=== PATIENT | female | born 1950 | race African-American/Black ===

== ENCOUNTER 2016-04-08 10:02 | Outpatient (CLI) | payer OTHER ==
[2015-06-30 23:35] VITALS: BP 156/84
[2016-04-08 10:52] LABS: BASOPHILS % 0.2 (0.0-1.5); EOSINOPHILS % 1.5 % (0.0-6.8); LYMPHOCYTES # 1.4 # k/uL (0.6-4.0); MEAN CORPUSCULAR HEMOGLOBIN 31.9 pg (28.0-34.0); MONOCYTES # 0.4 # k/uL (0.0-0.9); MONOCYTES % 5.7 % (0.0-11.0); NEUTROPHILS # 5.3 # k/uL (1.4-7.7)
[2016-04-08 11:36] LABS: eGFR (African) 16; eGFR (Non-African) 13
== END 2016-04-08 10:03 ==
LOC: LAB 10:02
PROVIDERS: ATTEND Physician Assistant
DX: R42 Dizziness and giddiness (principal)
CPT/HCPCS: 36415; 80053; 85025

== ENCOUNTER 2016-04-09 09:00 | Outpatient (CLI) | payer OTHER ==
[2015-06-30 23:35] VITALS: BP 156/84
[2016-04-09 09:32] LABS: eGFR (African) 19; eGFR (Non-African) 15
== END 2016-04-09 09:02 ==
LOC: LAB 09:00
PROVIDERS: ATTEND Physician Assistant
DX: E87.5 Hyperkalemia (principal)
CPT/HCPCS: 36415; 80053

== ENCOUNTER 2016-04-11 09:17 | Outpatient (CLI) | payer OTHER ==
[2015-06-30 23:35] VITALS: BP 156/84
[2016-04-11 10:14] LABS: eGFR (African) 20; eGFR (Non-African) 17
== END 2016-04-11 09:20 ==
LOC: LAB 09:17
PROVIDERS: ATTEND Family Medicine
DX: E87.5 Hyperkalemia (principal)
CPT/HCPCS: 36415; 80048

== ENCOUNTER 2016-04-13 12:31 | Outpatient (CLI) | payer OTHER ==
[2015-06-30 23:35] VITALS: BP 156/84
[2016-04-13 13:31] LABS: eGFR (African) 24; eGFR (Non-African) 20
== END 2016-04-13 12:32 ==
LOC: LAB 12:31
PROVIDERS: ATTEND Family Medicine
DX: E87.5 Hyperkalemia (principal)
CPT/HCPCS: 36415; 80048

== ENCOUNTER 2016-04-22 15:52 | Outpatient (CLI) | payer OTHER ==
[2015-06-30 23:35] VITALS: BP 156/84
[2016-04-22 16:46] LABS: eGFR (African) 32; eGFR (Non-African) 26
== END 2016-04-22 15:53 ==
LOC: LAB 15:52
PROVIDERS: ATTEND Physician Assistant
DX: E87.5 Hyperkalemia (principal)
CPT/HCPCS: 36415; 80048

== ENCOUNTER 2016-11-03 16:38 | Outpatient (CLI) | payer OTHER ==
[2015-06-30 23:35] VITALS: BP 156/84
== END 2016-11-03 16:40 ==
LOC: LAB 16:38
PROVIDERS: ATTEND Family Medicine
DX: E11.9 Type 2 diabetes mellitus without complications (principal)
CPT/HCPCS: 36415; 82104; 83036

== ENCOUNTER 2017-06-30 10:15 | Outpatient (CLI) | payer MEDICARE ==
[2015-06-30 23:35] VITALS: BP 156/84
[2017-06-30 10:58] LABS: APPEARANCE,URINE CLEAR (CLEAR); COLOR,URINE YELLOW (YELLOW); OCCULT BLOOD,URINE NEGATIVE (NEGATIVE); UROBILINOGEN URINE 0.2 Eu (0.2-1.0)
[2017-06-30 11:15] LABS: eGFR (African) 17; eGFR (Non-African) 14
--- NOTE | 2017-06-30 18:06 | Diagnostic Imaging Report ---
JOE LAZARO [facility] [place] [id number] [facility].[address] [id number] Report Submission Date: June 30, 2017 1:05:46 PM CDT Patient Study Name: MARLEE SANTOS Date: June 30, 2017 10:44:34 AM CDT Modality Type: DX Gender: F Description: SPINE : 48 Institution: [facility] [place] Physician: JOE LAZARO 3-view thoracic spine Clinical history: T-SPINE, ACUTE MID BACK PAIN AFTER FALL 3 WEEKS AGO,HX OF COPD , CHF Findings: Examination of the thoracic spine in AP, lateral and lateral swimmer' s views demonstrates the vertebrae to be anatomically aligned. Anterior and lateral osteophytes are present throughout the thoracic vertebrae. The pedicles are intact and the paravertebral soft tissues are within normal limits. There is no evident fracture. Impression: 1. Spondylosis. 2. No fracture. Electronically signed on June 30, 2017 1:05:46 PM CDT by: Jean-Paul LUKE
== END 2017-06-30 10:16 ==
LOC: LAB 10:15
PROVIDERS: ATTEND Family Medicine
DX: N18.3 Chronic kidney disease, stage 3 (moderate) (principal); R10.9 Unspecified abdominal pain; R30.0 Dysuria; M54.6 Pain in thoracic spine
CPT/HCPCS: 36415; 72072; 80053; 81002

== ENCOUNTER 2017-09-01 15:29 | Outpatient (CLI) | payer MEDICARE ==
[2015-06-30 23:35] VITALS: BP 156/84
[2017-09-01 17:06] LABS: eGFR (African) 8; eGFR (Non-African) 7
[2017-09-01 17:33] LABS: MEAN CORPUSCULAR VOLUME 105.5 fl (80.0-100.0)
[2017-09-01 17:34] LABS: BASOPHILS % 0.4 (0.0-1.5); EOSINOPHILS % 3.1 % (0.0-6.8); MONOCYTES % 4.5 % (0.0-11.0)
[2017-09-01 17:35] LABS: NEUTROPHILS # 4.4 # k/uL (1.4-7.7)
[2017-09-01 17:46] LABS: MEAN CORPUSCULAR HEMOGLOBIN 32.6 pg (28.0-34.0)
[2017-09-04 16:12] LABS: ANTI-PR3 (C-ANCA) <4.0 EU/mL (<4.0)
== END 2017-09-01 15:34 ==
LOC: LAB 15:29
PROVIDERS: ATTEND Internal Medicine Cardiovascular Disease
DX: N28.9 Disorder of kidney and ureter, unspecified (principal); I10 Essential (primary) hypertension; E11.9 Type 2 diabetes mellitus without complications; E78.5 Hyperlipidemia, unspecified; I25.10 Atherosclerotic heart disease of native coronary artery without angina pectoris
CPT/HCPCS: 36415; 80048; 80069; 83036; 83516; 84155; 84165; 84550; 85025; 86038; 86225

== ENCOUNTER 2017-09-22 14:27 | Outpatient (CLI) | payer MEDICARE ==
[2015-06-30 23:35] VITALS: BP 156/84
[2017-09-22 14:52] LABS: MEAN CORPUSCULAR HEMOGLOBIN 31.9 pg (28.0-34.0); MEAN CORPUSCULAR VOLUME 106.1 fl (80.0-100.0)
== END 2017-09-22 14:30 ==
LOC: LAB 14:27
PROVIDERS: ATTEND Internal Medicine
DX: N17.1 Acute kidney failure with acute cortical necrosis (principal); N18.4 Chronic kidney disease, stage 4 (severe)
CPT/HCPCS: 36415; 80069; 85027

== ENCOUNTER 2017-09-29 15:41 | Outpatient (CLI) | payer MEDICARE ==
[2015-06-30 23:35] VITALS: BP 156/84
[2017-09-29 16:01] LABS: MEAN CORPUSCULAR HEMOGLOBIN 30.8 pg (28.0-34.0); MEAN CORPUSCULAR VOLUME 106.3 fl (80.0-100.0)
== END 2017-09-29 15:42 ==
LOC: LAB 15:41
PROVIDERS: ATTEND Internal Medicine
DX: N17.1 Acute kidney failure with acute cortical necrosis (principal); N18.4 Chronic kidney disease, stage 4 (severe)
CPT/HCPCS: 36415; 80069; 85027

== ENCOUNTER 2017-11-20 16:24 | Outpatient (CLI) | payer MEDICARE ==
[2015-06-30 23:35] VITALS: BP 156/84
[2017-11-20 23:31] LABS: BASO % 0.2 % (0.0-1.5); EOS % 1.7 % (0.0-6.8); LYMPH ABS # 1.2 thou/uL (0.60-4.00); MCH. 31.7 pg (28.0-34.0); MCV 107.3 fL (80.0-100.0); MONOCYTE % 5.6 % (0.0-11.0); MONOCYTE ABS # 0.37 thou/uL (0.00-0.90)
== END 2017-11-20 16:25 ==
LOC: LAB 16:24
PROVIDERS: ATTEND Internal Medicine Nephrology
DX: N28.9 Disorder of kidney and ureter, unspecified (principal); I11.0 Hypertensive heart disease with heart failure; E11.9 Type 2 diabetes mellitus without complications; E78.5 Hyperlipidemia, unspecified; M10.9 Gout, unspecified; I25.10 Atherosclerotic heart disease of native coronary artery without angina pectoris; E11.22 Type 2 diabetes mellitus with diabetic chronic kidney disease; N18.4 Chronic kidney disease, stage 4 (severe); Z68.43 Body mass index [BMI] 50.0-59.9, adult
CPT/HCPCS: 36415; 80069; 85025

== ENCOUNTER 2018-01-22 15:14 | Outpatient (CLI) | payer MEDICARE ==
[2015-06-30 23:35] VITALS: BP 156/84
[2018-01-22 16:01] LABS: MEAN CORPUSCULAR HEMOGLOBIN 30.8 pg (28.0-34.0)
[2018-01-22 16:02] LABS: BASOPHILS % 0.2 (0.0-1.5); EOSINOPHILS % 2.4 % (0.0-6.8); MONOCYTES % 7.1 % (0.0-11.0)
== END 2018-01-22 15:15 ==
LOC: LAB 15:14
PROVIDERS: ATTEND Internal Medicine Nephrology
DX: E11.22 Type 2 diabetes mellitus with diabetic chronic kidney disease (principal); N18.4 Chronic kidney disease, stage 4 (severe); N28.9 Disorder of kidney and ureter, unspecified; I10 Essential (primary) hypertension; M10.9 Gout, unspecified; I25.10 Atherosclerotic heart disease of native coronary artery without angina pectoris; Z68.34 Body mass index [BMI] 34.0-34.9, adult
CPT/HCPCS: 36415; 80069; 85025

== ENCOUNTER 2018-04-24 14:53 | Outpatient (CLI) | payer MEDICARE ==
[2015-06-30 23:35] VITALS: BP 156/84
[2018-04-24 15:26] LABS: BASOPHILS % 0.3 (0.0-1.5); EOSINOPHILS % 2.7 % (0.0-6.8); MEAN CORPUSCULAR HEMOGLOBIN 31.5 pg (28.0-34.0); MONOCYTES % 5.6 % (0.0-11.0); NEUTROPHILS # 6.1 # k/uL (1.4-7.7)
== END 2018-04-24 14:55 ==
LOC: LAB 14:53
PROVIDERS: ATTEND Internal Medicine Nephrology
DX: N28.9 Disorder of kidney and ureter, unspecified (principal); I10 Essential (primary) hypertension; E11.9 Type 2 diabetes mellitus without complications; E78.5 Hyperlipidemia, unspecified; M10.9 Gout, unspecified; E11.22 Type 2 diabetes mellitus with diabetic chronic kidney disease; I25.10 Atherosclerotic heart disease of native coronary artery without angina pectoris; N18.4 Chronic kidney disease, stage 4 (severe); Z68.43 Body mass index [BMI] 50.0-59.9, adult
CPT/HCPCS: 36415; 80069; 85025

== ENCOUNTER 2018-12-17 15:01 | Outpatient (CLI) | payer MEDICARE ==
[2015-06-30 23:35] VITALS: BP 156/84
[2018-12-17 17:01] LABS: BASOPHILS % 0.3 % (0.0-1.5); NEUTROPHILS # 5.3 # k/uL (1.4-7.7)
[2018-12-17 17:21] LABS: eGFR (Non-African) 33
[2018-12-17 17:22] LABS: HDL 51 mg/dL (>40)
== END 2018-12-17 15:06 ==
LOC: LAB 15:01
PROVIDERS: ATTEND Internal Medicine Cardiovascular Disease
DX: I25.10 Atherosclerotic heart disease of native coronary artery without angina pectoris (principal)
CPT/HCPCS: 36415; 80053; 80061; 82306; 83036; 84443; 85025